=== PATIENT | male | born 1980 | race African-American/Black ===

== ENCOUNTER 2020-03-30 01:55 | Emergency (ER) | payer OTHER, SELFPAY ==
[2020-03-30 02:07] VITALS: BP 131/72; PULSE 81; RESP 16; TEMP 36.8; O2SAT 96; BMI 31.9
--- NOTE | 2020-03-30 02:22 | ED.BACK ---
HPI - Back Pain/Injury General Chief Complaint: Back Pain/Injury Stated Complaint: Back pain Time Seen by Provider: 03/30/20 02:21 Source: patient Mode of arrival: ambulatory Limitations: no limitations History of Present Illness HPI Narrative: Patient been having left scapular pain left shoulder pain for last couple of months was seen here previously and x-ray was done which was negative patient denies any shortness of breath no cough no chest pain no fever no history of injury patient denies any significant past medical history other than this pain MD elicited complaint: back pain Pertinent past history: prior back pain Onset (ago): month(s) (3) Timing: intermittent Severity: mild Similar Symptoms Previously: Yes Quality: dull Related Data Previous Rx's Medication Instructions Recorded cyclobenzaprine 10 mg PO Q8H #20 tab 03/30/20 tramadol 50 mg PO Q6H PRN #20 tab 03/30/20 Allergies Allergy/AdvReac Type Severity Reaction Status Date / Time No Known Allergies Allergy Verified 03/30/20 02:06 [No Known Allergies*] Review of Systems Review of Systems: Yes all other systems are reviewed and are negative FORMERLY [facility], [facility]1983 Past Medical History Medical History No known health problems Social History Social History Advance Directives: No Advance Directives Information Provided: No Physical Exam Vital Signs: Vital Signs: Last Vital Signs Temp 98.2 F 03/30/20 02:07 Pulse 81 03/30/20 02:07 Resp 16 03/30/20 02:07 BP 131/72 03/30/20 02:07 Pulse Ox 96 03/30/20 02:07 Body Mass Index 31.9 Appearance: Alert. Oriented X3. No acute distress. Eyes: Pupils equal, round and reactive to light. ENT: Pharynx normal. Neck: Normal inspection. Neck supple. CVS: Normal heart rate and rhythm. Pulses normal. Respiratory: No respiratory distress. Breath sounds normal. Abdomen: Soft and nontender. Bowel sounds are present, no mass palpable, no CVA tenderness Skin: Skin warm and dry. Normal skin color. Normal skin turgor. Extremities: No lower extremity edema. Tenderness at left rhomboids area and left rotator cuff with good range of movement of left shoulder Neuro: Oriented X 3. No motor deficit. No sensory deficit. MDM - Back Pain/Injury MDM Narrative Medical decision making narrative: Patient with pain in the left rhomboids and left rotator cuff area likely muscular pain will give him tramadol and Flexeril Discharge Plan Discharge Clinical Impression: Thoracic back pain Qualifiers: Chronicity: chronic Back pain laterality: left Qualified Code(s): M54.6 - Pain in thoracic spine Patient Disposition: Home, Self-Care Instructions: Musculoskeletal Pain (ED) Additional Instructions: Apply ice take pain medication muscle relaxant as advised. Follow with PCP if not better Prescriptions: New cyclobenzaprine 10 mg tablet 10 mg PO Q8H Qty: 20 RF: 0 tramadol 50 mg tablet 50 mg PO Q6H PRN (Reason: pain) Qty: 20 RF: 0 Interventions: ED Discharge Assessment Last Done: 03/30/20 02:49 Discharge Date/Time: 03/30/20 02:49
[2020-03-30] MEDS: Cyclobenzaprine HCl 10 MG TABLET PO (02:47)
[2020-03-30] MEDS: traMADoL HCL 50 MG TABLET PO (02:48)
== END 2020-03-30 02:49 | disposition home or self-care (01) ==
PROVIDERS: Emergency Provider Internal Medicine; PCP Physician Assistant Medical
DX: G89.29 Other chronic pain (principal); M54.6 Pain in thoracic spine
CPT/HCPCS: 99283

== ENCOUNTER 2020-08-02 06:51 | Emergency (ER) | payer OTHER, SELFPAY ==
--- NOTE | ~2020-08-02 | XR_ITS ---
EXAMINATION: XR SHOULDER, LEFT CLINICAL INFORMATION: History of left shoulder dislocation, now with pain. COMPARISON: None TECHNIQUE: AP external rotation, Grashey, scapular Y, and axillary views of the left shoulder. FINDINGS: Mild left glenohumeral degenerative joint changes are seen. Nonacute mild deformity of the bony glenoid is noted. There is no acute fracture dislocation. The left acromioclavicular joint is intact. The soft tissues are unremarkable. XR/XR shoulder LT min 2V IMPRESSION: Mild left glenohumeral degenerative joint changes and mild nonacute deformity of the bony glenoid likely secondary to the patient's prior trauma/dislocation. No definitive acute abnormality.
[2020-08-02 06:56] VITALS: BP 144/97; PULSE 87; RESP 16; TEMP 36.6; O2SAT 97; BMI 33.4
--- NOTE | 2020-08-02 07:13 | ED.EXTPRO ---
HPI - Extremity Problem General Chief complaint: Extremity Problem Stated complaint: left arm pain Time Seen by Provider: 08/02/20 07:12 Source: patient Mode of arrival: ambulatory Limitations: no limitations History of Present Illness HPI Narrative: 40-year-old male presented to the emergency department for evaluation of left shoulder pain. 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 Patient also is complaining of numbness in the distal forearm and the thumb area. Patient declined any chest pain, no neck pain. Related Data Previous Rx's Medication Instructions Recorded cyclobenzaprine 10 mg PO Q8H #20 tab 03/30/20 tramadol 50 mg PO Q6H PRN #20 tab 03/30/20 Allergies Allergy/AdvReac Type Severity Reaction Status Date / Time No Known Allergies Allergy Verified 08/02/20 06:59 [No Known Allergies*] Review of Systems Review of Systems: All other systems are reviewed and are negative Constitutional: Reports as per HPI and Reports no additional constitutional complaints Eyes: Reports as per HPI and Reports no additional eye complaints Reports system reviewed and no additional complaints, except as documented Cardiovascular: Reports as per HPI and Reports no additional cardiovascular complaints Respiratory: Reports as per HPI and Reports no additional respiratory complaints Gastrointestinal: Reports as per HPI and Reports no additional gastrointestinal complaints Genitourinary: Reports no additional female genitourinary complaints Musculoskeletal: Reports no additional musculoskeletal complaints Skin/Breast: Reports system reviewed and no additional complaints, except as docu Psychiatric: Reports no additional psychiatric complaints Endocrine: Reports no additional endocrine complaints Hematologic/Lymphatic: Reports no additional hematologic/lymphatic complaints Allergic/Immunologic: Reports no additional allergic/immunologic complaints Reports system reviewed and no additional complaints, except as documented and Reports Abnormal speech present [facility] Past Medical History Medical History No known health problems Social History Social History Advance Directives: No Advance Directives Information Provided: No Physical Exam Vital Signs: Vital Signs: Last Vital Signs Temp 97.9 F 08/02/20 06:56 Pulse 87 08/02/20 06:56 Resp 16 08/02/20 06:56 BP 144/97 H 08/02/20 06:56 Pulse Ox 97 08/02/20 06:56 Body Mass Index 33.4 Vital signs have been reviewed as appeared to be correct. Blood pressure normal. Heart rate normal. Respiration rate normal. Temperature normal. Oxygen saturation normal. Appearance: Alert. Oriented X3. No acute distress. Head: Normal external exam. Normocephalic. Atraumatic. No Andersen signs noted. No raccoon eyes noted Eyes: PERRLA. EOMI. Conjunctiva and sclera normal. Eyelids normal. ENT: TM's Normal. Pharynx normal. Uvula midline. Moist mucous membranes. No trismus noted. No drooling noted. No muffled voice noted. Neck: Normal inspection. Neck supple. FROM. No adenopathy. Thyroid Normal. No meningeal signs. No neck mass noted. CVS: Normal heart rate and rhythm. Heart sound normal. No murmurs noted. Pulses normal throughout. Respiratory: No respiratory distress. Painless inspiration. Breath sounds normal. No wheezes/rales/rhonchi noted. Chest nontender. No accessory muscle usage noted or decreased air movement noted. Abdomen: Soft and nontender. Bowel sounds normal in all 4 quadrants. No distention noted. No organomegaly noted. No visible injury noted. Back: No CVA tenderness. Full range of motion noted. Skin: Skin warm and dry. Normal skin color. Normal skin turgor. No rashes/lesions/lacerations noted. Left upper extremity exam: No apparent deformity, left shoulder held in adduction, able to perform abduction, pain is severe if you reach 30 degree point elevation, tenderness on on pressing on the greater tuberosity of humerus, intact radial pulse, cap refill less than 2 seconds, intact sensation to light touch in the left hand, left forearm and arm and over deltoid area. Good strength and hand life care planner in the left side. Neuro: Oriented X 3. No motor deficit. No sensory deficit. Reflexes normal. Course Course Course Narrative: Assessment and plan. 40-year-old male who came in with left shoulder pain patient with history of recurrent dislocation, currently shoulder is in place with no radiographic or clinical evidence of dislocation, physical exam is consistent with rotator cuff tendinitis. Ice/immobilization/ortho follow-up/NSAIDs. MDM - Extremity (Nontraumatic) Imaging Data Left shoulder x-ray: Radiologist's impression: Mild left glenohumeral degenerative joint changes and mild nonacute deformity of the bony glenoid likely secondary to the patient's prior trauma/dislocation. No definitive acute abnormality. Discharge Plan Discharge Clinical Impression: Tendinitis of left rotator cuff Patient Disposition: Home, Self-Care Instructions: Rotator Cuff Injury (ED), Rotator Cuff Injury Exercises (DC) Prescriptions: No Action cyclobenzaprine 10 mg tablet 10 mg PO Q8H Qty: 20 RF: 0 tramadol 50 mg tablet 50 mg PO Q6H PRN (Reason: pain) Qty: 20 RF: 0 Referrals: Robbie Williamson MD [Physician] - 2 days Stand Alone Forms: Work/School Release
[2020-08-02 07:57] VITALS: BP 112/67; PULSE 80; RESP 16; O2SAT 97
== END 2020-08-02 08:06 | disposition home or self-care (01) ==
PROVIDERS: Emergency Provider Emergency Medicine; PCP Physician Assistant Medical
DX: M75.102 Unspecified rotator cuff tear or rupture of left shoulder, not specified as traumatic (principal); M19.012 Primary osteoarthritis, left shoulder; M24.412 Recurrent dislocation, left shoulder
CPT/HCPCS: 73030; 99283

== ENCOUNTER → 2020-08-07 08:24 | Outpatient (BNVA) | payer OTHER, SELFPAY | PROVIDERS: PCP Physician Assistant Medical; Visit Provider Physician Assistant | DX: M24.412 Recurrent dislocation, left shoulder (principal) | CPT/HCPCS: 20610; 99202; J1040 ==

== ENCOUNTER 2020-08-09 14:27 | Emergency (ER) | payer OTHER, SELFPAY ==
--- NOTE | ~2020-08-09 | US_ITS ---
EXAMINATION: US VENOUS WITH DOPPLER UPPER EXTREMITY, LEFT CLINICAL INFORMATION: Left upper extremity pain. COMPARISON: None TECHNIQUE: Ultrasound of the upper extremity is performed using compression sonography and color and pulse Doppler flow with assessment of augmentation of flow. There is also imaging and Doppler assessment of the jugular and subclavian veins. Spectral analysis with color-flow imaging is performed. FINDINGS: Respiratory variation, normal compression, and augmented flow are noted throughout the upper extremity including the axillary, brachial, cubital, and radial and ulnar veins. There is normal flow in the internal jugular and subclavian veins. There is no visible deep or superficial thrombophlebitis. If the patient's symptoms progress, a followup ultrasound in 5 -7 days might be of value to exclude proximal propagation from a nonvisualized distal arm vein. US/US venous duplex UE LT IMPRESSION: No evidence for deep venous thrombosis in the left upper extremity.
[2020-08-09 15:06] VITALS: BP 186/119; PULSE 100; RESP 20; TEMP 36.1; O2SAT 95; BMI 33.4
--- NOTE | 2020-08-09 15:14 | ED.EXTPRO ---
HPI - Extremity Problem General Chief complaint: Extremity Injury, Upper Stated complaint: arm pain Time Seen by Provider: 08/09/20 16:51 Source: patient Mode of arrival: ambulatory Limitations: no limitations History of Present Illness HPI Narrative: Patient presents to ED for left shoulder pain. Patient states was informed by Orthopedic he has left shoulder tendonitits and possible rotator cuff tear. Patient was seen in the ER recently for left shoulder pain without any trauma. Patient states history of multiple shoulder dislocation and ligament damage in the shoulder. Trend that time. Patient has schedule MRI ordered. Describes left shoulder pain.. Patient denies any chest pain or shortness of breath. He states having these symptoms for at least 2 weeks. Patient denies any shoulder pain radiating to chest, neck, or to finger. Patient denies any recent new trauma since being evaluated by the Orthopedic and our ED. Related Data Previous Rx's Medication Instructions Recorded cyclobenzaprine 10 mg PO Q8H #20 tab 03/30/20 tramadol 50 mg PO Q6H PRN #20 tab 03/30/20 ibuprofen 800 mg tablet 800 mg PO Q8H PRN 30 Days #90 tab 08/07/20 oxycodone-acetaminophen [Percocet] 1 tab PO TID PRN #9 tab 08/09/20 Allergies Allergy/AdvReac Type Severity Reaction Status Date / Time No Known Allergies Allergy Verified 08/09/20 15:08 [No Known Allergies*] Review of Systems Review of Systems: Yes all other systems are reviewed and are negative Constitutional: Constitutional: Reports as per HPI and Reports no additional constitutional complaints Eyes: Eyes: Reports as per HPI and Reports no additional eye complaints ENT: Reports system reviewed and no additional complaints, except as documented and Reports as per HPI Cardiovascular: Cardiovascular: Reports as per HPI and Reports no additional cardiovascular complaints Respiratory: Respiratory: Reports as per HPI and Reports no additional respiratory complaints Gastrointestinal: Gastrointestinal: Reports as per HPI and Reports no additional gastrointestinal complaints Genitourinary: Genitourinary: Reports no additional male genitourinary complaints and Reports as per HPI Musculoskeletal: Musculoskeletal: Reports no additional musculoskeletal complaints, Reports as per HPI and Reports arthralgias Neurologic: Reports system reviewed and no additional complaints, except as documented and Reports as per HPI Psychiatric: Psychiatric: Reports no additional psychiatric complaints and Reports as per HPI PMF Past Medical History Medical History No known health problems Social History Social History Advance Directives: No Advance Directives Information Provided: No Physical Exam Vital Signs: Vital Signs: Last Vital Signs Temp 97.1 F 08/09/20 17:01 Pulse 75 08/09/20 17:44 Resp 18 08/09/20 17:01 BP 148/87 H 08/09/20 17:01 Pulse Ox 99 08/09/20 17:01 Body Mass Index 33.4 Const: General: cooperative, healthy appearing, well developed, alert, awake and acute distress Orientation/consciousness: patient oriented x3 HENMT: Head: Yes normal to inspection and Yes No palpable skull fracture present Eyes: General: appearance normal, both eyes and all related structures Neck: Neck: Yes normal visual inspection, Yes full ROM, Yes no lymphadenopathy, Yes no meningeal signs, Yes trachea midline, Yes supple and No tender Chest: Chest palpation & inspection: normal inspection of the chest and normal palpation of entire chest wall Resp: Effort & Inspection: normal respiratory effort and able to speak in complete sentences Auscultation: clear to auscultation bilaterally Cardio: Jugular venous distension: no JVD Heart sounds: S1 normal heart sound present and S2 normal heart sound present GI: Inspection: Yes normal to inspection and No abdominal wall ecchymosis Palpation (GI): Soft to palpation, not firm, nontender, no guarding and not rigid : General: No CVA tenderness and Yes no CVA tenderness Back/Spine/Pelvis: Back: no CVA tenderness, No CVA tenderness and No back tenderness Skin: General skin exam: no rashes or lesions noted and elasticity normal Neuro: General: patient oriented x3, gait normal, no meningeal signs and CN's II-XI intact bilaterally Cranial nerves: Yes CN's II-XII intact bilaterally Extrem: Other: Left upper extremity: Positive for pain on movement of shoulder and on palpation. Negative for swelling/redness/mass/coolness/hotness of left upper extremity. Pain on range of motion of shoulder. No deformities. Vascular/motor/neuro exam in fact my upper extremity normal. motor/ neuro/vascular exam is intact. General: Yes normal to inspection and Yes full ROM Psych: Appearance: grossly normal, well kempt and not disheveled Course Course Course Narrative: And evaluated by Orthopedic which wrote that he had tendinitis of left shoulder and was scheduled for MRI. Not suspecting redislocation due to patient having range of motion of shoulder. Not suspect any cardiac issues. Patient has no referred pain to the chest/neck its and denies have any shortness of breath. Patient states pain is worse on movement. Was sent for Doppler to rule out blood clot, due to patient's crying in pain. Reevaluation(s) Reevaluation #1: Left upper extremity ultrasound negative for PE DVT. Patient tachycardic and hypertensive due to pain. EKG reticular rate 75 and normal sinus rhythm. No need for further intervention. Patient will be discharged with narcotics. MDM - Extremity (Nontraumatic) MDM Narrative Medical decision making narrative: Left shoulder tendinitis. Discharge Plan Discharge Clinical Impression: Left shoulder tendinitis Patient Disposition: Home, Self-Care Instructions: Tendinitis (ED) Additional Instructions: Return to the ED immediately for any chest pain, shortness of breath, coughing up blood, fever, chills, swelling upper extremity, redness, hotness, development of red streaks, cold sensation of extremity, bluish discoloration of fingers, or any other concerning symptoms. Please follow-up with orthopedist Prescriptions: New oxycodone-acetaminophen [Percocet] 5-325 mg tablet 1 tab PO TID PRN (Reason: pain) Qty: 9 RF: 0 No Action cyclobenzaprine 10 mg tablet 10 mg PO Q8H Qty: 20 RF: 0 tramadol 50 mg tablet 50 mg PO Q6H PRN (Reason: pain) Qty: 20 RF: 0 ibuprofen 800 mg tablet 800 mg PO Q8H PRN (Reason: pain) 30 Days Qty: 90 RF: 3 Interventions: ED Discharge Assessment Last Done: 08/09/20 18:11 Discharge Date/Time: 08/09/20 18:12 Print Language: Hungarian
[2020-08-09] MEDS: Cyclobenzaprine HCl 5 MG TABLET PO (15:23)
[2020-08-09] MEDS: oxyCODONE HCl Immed Release 5 MG TABLET PO (15:24)
[2020-08-09 16:20] VITALS: RESP 18
[2020-08-09 17:01] VITALS: BP 148/87; PULSE 121; RESP 18; TEMP 36.2; O2SAT 99
--- NOTE | 2020-08-09 17:05 | ECG_ITS ---
Test Reason : tachycardic Blood Pressure : / mmHG Vent. Rate : 075 BPM Atrial Rate : 075 BPM P-R Int : 192 ms QRS Dur : 092 ms QT Int : 350 ms P-R-T Axes : 072 053 040 degrees QTc Int : 390 ms Normal sinus rhythm with sinus arrhythmia Normal ECG No previous ECGs available Referred By: Leo Moser Electronically Signed By:ORALIA YBARRA
[2020-08-09 17:44] VITALS: PULSE 75
[2020-08-09] MEDS: Ketorolac Tromethamine 30 MG/ML VIAL IM (18:05)
== END 2020-08-09 18:12 | disposition home or self-care (01) ==
PROVIDERS: Emergency Provider Emergency Medicine; PCP Physician Assistant Medical
DX: M25.512 Pain in left shoulder (principal); M75.92 Shoulder lesion, unspecified, left shoulder; R00.0 Tachycardia, unspecified; I10 Essential (primary) hypertension
CPT/HCPCS: 93005; 93971; 96372; 99284; J1885

== ENCOUNTER 2020-08-11 04:58 | Emergency (ER) | payer OTHER, SELFPAY ==
--- NOTE | ~2020-08-11 | XR_ITS ---
EXAMINATION: XR SHOULDER, LEFT CLINICAL INFORMATION: Left shoulder pain. History of multiple dislocations. COMPARISON: 08/02/2020 TECHNIQUE: Three views of the left shoulder. FINDINGS: No fracture or dislocation. The glenohumeral joint is well aligned with mild joint space narrowing. Osseous excrescence at the inferior aspect of the glenoid could be associated with chronic Bankart injury. The acromioclavicular joint is intact. Visualized lung is clear. The visualized ribs are intact. XR/XR shoulder LT min 2V IMPRESSION: No acute fracture or malalignment. Mild glenohumeral joint space narrowing. Chronic bony deformity of the glenoid.
[2020-08-11 05:23] VITALS: BP 147/91; PULSE 74; RESP 14; TEMP 36.3; O2SAT 99; BMI 33.4
[2020-08-11] MEDS: HYDROmorphone HCl 1 MG/ML SYRINGE IM (06:15)
[2020-08-11] MEDS: diazePAM 5 MG TABLET PO (06:15)
--- NOTE | 2020-08-11 06:21 | ED.EXTPRO ---
HPI - Extremity Problem General Chief complaint: Extremity Injury, Upper Stated complaint: Shoulder pain Time Seen by Provider: 08/11/20 05:54 Source: patient Mode of arrival: ambulatory Limitations: no limitations History of Present Illness HPI Narrative: Patient comes to the emergency room complaining of left-sided shoulder pain. Patient states the pain is 10/10, has been ongoing for about a week. Patient states that since he was 19, he has had for shoulder dislocations. At this time, patient does not think the shoulder is dislocated, but states the pain is very intense, 10/10. Patient was seen on 08/07/2020 by Orthopedics, patient was told that he needs physical therapy and that he needs an MRI which is being processed. Patient was given Percocet for pain medication and ibuprofen 800 but it is not having any effect. Patient states the pain is worse over the scapular area on the left side. Denies chest pain, no shortness of breath. Related Data Previous Rx's Medication Instructions Recorded cyclobenzaprine 10 mg PO Q8H #20 tab 03/30/20 tramadol 50 mg PO Q6H PRN #20 tab 03/30/20 ibuprofen 800 mg tablet 800 mg PO Q8H PRN 30 Days #90 tab 08/07/20 oxycodone-acetaminophen [Percocet] 1 tab PO TID PRN #9 tab 08/09/20 baclofen 10 mg PO TID PRN #10 tab 08/11/20 diazepam [Valium] 5 mg PO BID PRN #10 tab 08/11/20 Allergies Allergy/AdvReac Type Severity Reaction Status Date / Time No Known Allergies Allergy Verified 08/09/20 15:08 [No Known Allergies*] Review of Systems Review of Systems: Constitutional : No Weight loss, No Fever, No Chills, No Night Sweats, No Fatigue, No Malaise ENT/Mouth : No Hearing loss, No Ear Pain, No Nasal Congestion, No Sinus Pain, No Hoarseness, No sore throat, No Rhinorrhea, No Swallowing Difficulty Eyes: No Eye Pain, No Swelling, No Redness, No Foreign Body, No Discharge, No Vision Changes Cardiovascular : No Chest Pain, No SOB, No Dyspnea on Exertion, No Orthopnea, No Edema, No Palpitations Respiratory : No Cough, No Sputum, No Wheezing, No Smoke Exposure, No Dyspnea Gastrointestinal : No Nausea, No Vomiting, No Diarrhea, No Constipation, No abdominal Pain, No Hematochezia, No Melena Genitourinary : no irregular bleeding, No Dysuria, No Urinary Frequency, No Hematuria, No Urinary Incontinence, No Urgency, No Flank Pain, No Urinary Flow Changes, No Hesitancy Musculoskeletal : Complaining of left-sided shoulder pain, left scapular pain, left pain over the trapezius muscle, No Joint Swelling Skin : No Skin Lesions, No rash Neuro : No Weakness, No Numbness, No Paresthesias, No Loss of Consciousness, No Dizziness, No Headache Psych : No Anxiety/Panic, No Depression, No SI/HI/AH/VH, No Social Issues, Heme/Lymph: No Bruising, No Bleeding,No Lymphadenopathy Endocrine : No Polyuria, No Polydipsia, No Temperature Intolerance PMFSH Past Medical History Medical History No known health problems Social History Social History Advance Directives: No Advance Directives Information Provided: No Physical Exam Vital Signs: Vital Signs: Last Vital Signs Temp 97.3 F 08/11/20 05:23 Pulse 74 08/11/20 05:23 Resp 14 08/11/20 05:23 BP 147/91 H 08/11/20 05:23 Pulse Ox 99 08/11/20 05:23 Body Mass Index 33.4 Appearance: Alert. Oriented X3. In acute distress due to pain Eyes: Pupils equal, round and reactive to light. ENT: Pharynx normal. Neck: Normal inspection. Neck supple. No lymph nodes noted. No crepitus CVS: Normal heart rate and rhythm. Pulses normal. Normal S1 and S2 Respiratory: No respiratory distress. Breath sounds normal. No Wheezing. No rales Abdomen: Soft and nontender. No rigidity. No distention. good BS x4 Skin: Skin warm and dry. Normal skin color. Normal skin turgor. Extremities: No lower extremity edema. Patient is able to abduct his shoulder up to 45 degrees, patient states that he has severe pain over the scapular area, pain to palpation over the trapezius muscle on the left side. Neuro: Oriented X 3. No motor deficit. No sensory deficit. Moving all extermities. No slurred speech. Course Course Course Narrative: Per patient, he has an MRI pending of his left shoulder and also physical therapy which was prescribed by Orthopedics. Patient received 1 5 mg p.o. of diazepam to help with the muscle spasms, patient was also provided with a sling. I discussed with the patient that he may have a rotator cuff injury, for which he may need physical therapy versus surgery, that is why he will need an MRI soon as possible. MDM - Extremity (Nontraumatic) Imaging Data Shoulder x-ray: Radiologist's impression: FINDINGS: No fracture or dislocation. The glenohumeral joint is well aligned with mild joint space narrowing. Osseous excrescence at the inferior aspect of the glenoid could be associated with chronic Bankart injury. The acromioclavicular joint is intact. Visualized lung is clear. The visualized ribs are intact. XR/XR shoulder LT min 2V IMPRESSION: No acute fracture or malalignment. Mild glenohumeral joint space narrowing. Chronic bony deformity of the glenoid. Discharge Plan Discharge Clinical Impression: Chronic left shoulder pain Patient Disposition: Home, Self-Care Instructions: Shoulder Pain (ED), Shoulder Immobilizer (ED) Additional Instructions: Please follow-up with your primary care physician tomorrow. If you have any worsening or new symptoms, please return to the emergency room or call 911 Prescriptions: New baclofen 10 mg tablet 10 mg PO TID PRN (Reason: muscle spasm) Qty: 10 RF: 0 diazepam [Valium] 5 mg tablet 5 mg PO BID PRN (Reason: muscle spasm) Qty: 10 RF: 0 No Action cyclobenzaprine 10 mg tablet 10 mg PO Q8H Qty: 20 RF: 0 tramadol 50 mg tablet 50 mg PO Q6H PRN (Reason: pain) Qty: 20 RF: 0 oxycodone-acetaminophen [Percocet] 5-325 mg tablet 1 tab PO TID PRN (Reason: pain) Qty: 9 RF: 0 ibuprofen 800 mg tablet 800 mg PO Q8H PRN (Reason: pain) 30 Days Qty: 90 RF: 3
--- NOTE | 2020-08-11 06:32 | PC.NURSE ---
PT REPORTS THAT HE HAS INCREASED PAIN WHILE UPRIGHT, SOME RELIEF WHEN RLR POSITION. PT HAS GOOD PMS IN LEFT UPPER EXTREMITY, MOST OF HIS PAIN IS TO HIS LEFT SHOULDER BLADE. LEFT UPPER EXTREMITY PLACED IN A SLING FOR SUPPORT. PT EXPERIENCING DECREASED PAIN WITH ARM IN SLING.
--- NOTE | 2020-08-11 06:45 | PC.NURSE ---
PT FELL ASLEEP ON STRETCHER, WOKE EASLIY TO VOICE.
== END 2020-08-11 06:49 | disposition home or self-care (01) ==
PROVIDERS: Emergency Provider Emergency Medicine; PCP Physician Assistant Medical
DX: G89.29 Other chronic pain (principal); M25.512 Pain in left shoulder
CPT/HCPCS: 73030; 96372; 99283; 99284; J1170

== ENCOUNTER 2020-08-18 13:16 | Outpatient (REF) | payer OTHER, SELFPAY ==
--- NOTE | ~2020-08-18 | MR_ITS ---
EXAMINATION: MR SHOULDER WITH CONTRAST, LEFT CLINICAL INFORMATION: Left shoulder instability. Old injury. Pain. Decreased range of motion. COMPARISON: Radiograph dated 08/11/2020 TECHNIQUE: MRI of the shoulder was performed following the intra-articular administration of a dilute gadolinium-containing solution (arthrogram) on a high-field scanner. FINDINGS: ROTATOR CUFF: Intact. No muscle atrophy or fatty infiltration. BICEPS: Normal. CORACOACROMIAL ARCH: The undersurface of the acromion is curved with no subacromial spur. [id number] acromioclavicular osteoarthritis. LABRUM/CAPSULE: The anterior labrum is ill-defined with surface fraying/irregularity. No discrete tears. Anteroinferior joint capsule is relatively patulous but intact. GLENOHUMERAL JOINT/MARROW: There is an osseous excrescence at the anterior glenoid rim measuring 1.6 cm craniocaudal and 0.3 cm transverse which may correspond to an old healed Bankart fracture. There is adjacent chondral fissuring and partial-thickness cartilage loss at the anterior third of the glenoid articular surface. Small glenoid osteophytes are noted. There is mild chondral fissuring at the humeral head medially. At the posterosuperior aspect of the humeral head, there is a 1.6 x 2.2 cm area of articular cortical flattening and depression (3 mm), most consistent with a chronic Hill-Sachs deformity. No fracture or malalignment. MR/MR shoulder LT w con IMPRESSION: 1. Shallow chronic Hill-Sachs deformity at the humeral head and an old healed Bankart fracture at the anterior glenoid rim with associated labral fraying/irregularity, consistent with an old dislocation event. 2. [id number] acromioclavicular osteoarthritis. 2. Intact rotator cuff.
--- NOTE | ~2020-08-18 | FL_ITS ---
EXAMINATION: XR ARTHROGRAM SHOULDER, LEFT CLINICAL INFORMATION: Left shoulder instability COMPARISON: None TECHNIQUE/findings: Procedure and risks and benefits including bleeding and infection were discussed and informed consent was obtained. The left shoulder was prepped and draped in the usual sterile fashion. The skin and soft tissues were anesthetized with 1% lidocaine plain. Using fluoroscopic guidance and a 22-gauge needle, access to the left shoulder joint was obtained. 1 to 2 mL of Omnipaque 300 was injected fluoroscopically confirming adequate needle placement in the joint space. Subsequently, a mixture of dilute gadolinium mixed with saline and 1% lidocaine plain was injected pre-MRI. FLUOROSCOPY TIME: 0.8 minutes. 1 saved fluoroscopic image. DAP 2 Sharma per centimeter squared. FL/FL arthrogram shoulder LT IMPRESSION: Pre-MRI left shoulder arthrogram.
== END 2020-08-18 13:17 | disposition home or self-care (01) ==
LOC: HO.XRAY 13:16
PROVIDERS: Visit Provider Physician Assistant
DX: M25.312 Other instability, left shoulder (principal)
CPT/HCPCS: 23350; 73040; 73222

== ENCOUNTER 2020-08-25 09:00 | Outpatient (RCR) | payer OTHER, SELFPAY ==
--- NOTE | 2020-08-18 09:09 | MHC.PT.EP ---
[facility] [place] Office [place] Office [place] Office [address] Hector Redd [address] [phone] F: [phone] F: [phone] F: [phone] F: [phone] Physical Therapy Plan of Care Date of Evaluation: Date of Surgery: Diagnosis: recurrent dislocation, left shoulder Assessment: 40 y/o RHD male referred to PT with recurrent shoulder dislocations. He reports his last L shoulder dislocation was over 5 years ago but about one month ago, he woke up with significant L shoulder pain and numbness into L first and second digits. Reports difficulty with sleeping, lifting, reaching overhead, and dressing. Examination shows decreased cervical and L shoulder AROM, decreased L RTC/scapular strength, pain and tenderness scapular region, and sx reproduction with cervical movements. S/s consistent with cervical derangement and L shoulder instability. Recommend PT 2x/week for 5 weeks to address impairments, implement HEP, and optimize functional mobility. Frequency and Duration: The patient will be seen 2x/week for 5 weeks Short Term Goals: 3 weeks 1. I with HEP 2. Improve L cervical AROM by 5 degrees each direction 3. 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 I with HEP and self management of sx 2. Pt will be able to reach overhead with pain < 3/10 3. Pt will be able to sleep through 75% of the night with pain < 3/10 Treatment Plan: Modalities to reduce pain, spasms and effusion. Manual therapy to restore motion and function. Therapeutic exercise to improve strength and flexibility. Neuromuscular re-education for posture and balance. Therapeutic activities to return to functional activities of daily living. Electronically signed by: Marlee Portillo PT Please sign and return to therapist. Thank you for your referral.
--- NOTE | 2020-10-06 15:51 | MHC.PT.DC ---
[facility] [place] Office [place] Office [place] Office [address] Hector Redd [address] [phone] F: [phone] F: [phone] F: [phone] F: [phone] Physical Therapy Discharge Report Diagnosis: recurrent dislocation, left shoulder Date of Surgery: Date of Evaluation: 08/18/20 Date of Discharge: 10/06/20 Treatments to Date: 2 Cancellations to Date: 0 No Shows to Date: 3 Discharge Status: Visit Non-compliance Discharge Summary: Pt with 3 consecutive no shows. D/c secondary to noncompliance with scheduling policy. Electronically signed by: Marlee Portillo PT Please sign and return to therapist. Thank you for your referral.
== END 2020-10-06 15:52 | disposition home or self-care (01) ==
LOC: HO.PT 09:00
PROVIDERS: PCP Physician Assistant Medical; Visit Provider Physician Assistant
DX: M24.412 Recurrent dislocation, left shoulder (principal)
CPT/HCPCS: 97110; 97112; 97161

== ENCOUNTER → 2020-09-03 10:57 | Outpatient (BNVA) | payer OTHER, SELFPAY | PROVIDERS: PCP Physician Assistant Medical; Visit Provider Physician Assistant | DX: Z13.89 Encounter for screening for other disorder (principal) | CPT/HCPCS: 99212 ==

== ENCOUNTER 2022-05-25 18:13 | Emergency (ER) | payer OTHER, SELFPAY ==
--- NOTE | 2022-05-25 18:31 | ED_ITS ---
HPI - Extremity Problem General Chief complaint: Extremity Injury, Lower Stated complaint: Pain in L leg Source: patient Mode of arrival: ambulatory Limitations: no limitations History of Present Illness HPI Narrative: Patient is a 42-year-old male who presents to the emergency department for evaluation of leg pain. States that he awoke yesterday with pain to the left proximal leg. No pain to the groin or lateral hip. No precipitating injury. Pain has been constant throughout the day, progressively worsened while at work yesterday. 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 Pain feels worse today. He took Tylenol 650 mg, ibuprofen 400 mg twice today without any significant improvement. Denies hematuria, dysuria, urinary frequency. Denies associated back pain. Denies any numbness or tingling to the extremity, no redness, swelling, calf pain. Denies chest pain, shortness of breath. Related Data Previous Rx's Medication Instructions Recorded cyclobenzaprine 10 mg tablet 10 mg PO Q8H #20 tabs 03/30/20 tramadol 50 mg tablet 50 mg PO Q6H PRN pain #20 tabs 03/30/20 ibuprofen 800 mg tablet 800 mg PO Q8H PRN pain 30 days #90 08/07/20 tabs oxycodone-acetaminophen 5 mg-325 1 tab PO TID PRN pain #9 tabs 08/09/20 mg tablet (Percocet) baclofen 10 mg tablet 10 mg PO TID PRN muscle spasm #10 08/11/20 tabs diazepam 5 mg tablet (Valium) 5 mg PO BID PRN muscle spasm #10 08/11/20 tabs cyclobenzaprine 10 mg tablet 10 mg PO TID PRN muscle spasm #20 05/25/22 tabs Allergies Allergy/AdvReac Type Severity Reaction Status Date / Time No Known Allergies Allergy Verified 05/25/22 18:36 [No Known Allergies*] Review of Systems Review of Systems: Yes all other systems are reviewed and are negative [facility] Past Medical History Attestation statement: The following information was validated with the patient. Source: old records reviewed Medical History No known health problems Social History Social History Advance Directives: No Advance Directives Information Provided: No Physical Exam Vital Signs: Vital Signs: Last Vital Signs Temp 98 F 05/25/22 18:32 Pulse 87 05/25/22 18:32 Resp 16 05/25/22 18:32 BP 140/85 H 05/25/22 18:32 Pulse Ox 98 05/25/22 18:32 O2 Del Method 05/25/22 18:32 BMI result Body Mass Index 33.4 Appearance: Alert.?Oriented to person, place and time. No acute distress.?Normal affect.?? Neck: Normal inspection.? Neck supple.?? CVS: Heart sounds normal. Normal heart rate and rhythm.? Pulses normal.?? Respiratory: No respiratory distress.? Lung sounds clear to auscultation bilaterally?? Abdomen: Soft and non-tender. Normoactive bowel sounds. No pulsatile mass.??No palpable lumbar mass to the groin. Skin: Skin warm and dry.? Normal skin color.? Extremities: No lower extremity edema.? No calf ttp. 2+ DP/PT pulse bilaterally. Decreased flexion of the hip due to pain, palpable tenderness over the left anterior thigh proximally. Neuro: Moves all extremities spontaneously. Sensation intact bilaterally. Ambulates with steady antalgic gait. Medical Decision Making Medical Decision Making MDM Narrative: Patient is a 42-year-old male presents emergency department for evaluation of left proximal leg pain without any obvious precipitating injury. At the time of examination he is overall well-appearing, nontoxic. Is able to weight bear, has a mildly antalgic gait. Point tenderness over the proximal left anterior thigh, provoked pain with flexion of the hip. Neurovascularly intact distally. He does engage in heavy lifting for work, I suspect at this time pain is most consistent with a muscular strain. Low suspicion for acute fracture, dislocation, avascular necrosis, inguinal hernia. Abdominal examination is benign, not consistent with diverticulitis, colitis, bowel obstruction. No genitourinary symptoms, low suspicion for urinary tract infection, pyelonephritis. Discussed plan of care for rest, ice/heat, avoidance of heavy lifting, acetaminophen/ibuprofen, prescription for Flexeril sent to patient's pharmacy, discussed precautions with use of this medication. All questions were answered. Reviewed worrisome signs and symptoms of warrant re-evaluation in the emergency department. Advised outpatient follow-up with primary care provider. Provided with a return to work note. Differential Diagnosis Differential Diagnoses: The differential diagnosis associated with the presentation includes (As noted above) Tests considered The following testing was considered but not selected: X-ray imaging deferred, low suspicion for fracture, dislocation, osseous abnormality of the hip, therefore deferred Prescription Management I considered prescription management with: Pain Medication Discharge Plan Discharge Clinical Impression: Muscle strain of left hip Patient Disposition: Home, Self-Care Instructions: Muscle Strain (ED) Additional Instructions: You can take ibuprofen 200 mg, 3 tablets (600mg) every 6-8 hours as needed for pain, in addition to Tylenol 500 mg, 2 tablets (1,000mg) every 4-6 hours as needed for pain, but not to exceed 3 doses daily (3,000mg).? A prescription for muscle relaxant, Flexeril was sent to your pharmacy, this medication may make you drowsy. You should not drive, drink alcohol, or work while taking this medication. Please be sure to rest over the next few days, apply ice/heat for 10-15 minutes 4-6 times daily. Engage in gentle stretching exercises. Follow-up with your primary care provider next week for persistent symptoms Return back to emergency department with any new or worsening symptoms or concerns. Prescriptions: New cyclobenzaprine 10 mg tablet 10 mg PO TID PRN (Reason: muscle spasm) Qty: 20 0RF No Action cyclobenzaprine 10 mg tablet 10 mg PO Q8H Qty: 20 0RF tramadol 50 mg tablet 50 mg PO Q6H PRN (Reason: pain) Qty: 20 0RF oxycodone-acetaminophen [Percocet] 5-325 mg tablet 1 tab PO TID PRN (Reason: pain) Qty: 9 0RF Rx Instructions: side effect is drowsiness. Do not take at work or while driving. baclofen 10 mg tablet 10 mg PO TID PRN (Reason: muscle spasm) Qty: 10 0RF diazepam [Valium] 5 mg tablet 5 mg PO BID PRN (Reason: muscle spasm) Qty: 10 0RF Rx Instructions: Please avoid taking diazepam, tried taking baclofen first. Do not these two medications together ibuprofen 800 mg tablet 800 mg PO Q8H PRN (Reason: pain) 30 Days Qty: 90 3RF Referrals: Physician,Unknown J [Primary Care Provider] - Stand Alone Forms: Work/School Release
[2022-05-25 18:32] VITALS: BP 140/85; PULSE 87; RESP 16; TEMP 36.6; O2SAT 98; BMI 33.4
== END 2022-05-25 18:56 | disposition home or self-care (01) ==
PROVIDERS: Emergency Provider Student in an Organized Health Care Education/Training Program
DX: S76.012A Strain of muscle, fascia and tendon of left hip, initial encounter (principal); X50.0XXA Overexertion from strenuous movement or load, initial encounter; Y93.9 Activity, unspecified; Y92.9 Unspecified place or not applicable; Y99.9 Unspecified external cause status
CPT/HCPCS: 99282; 99283